=== PATIENT | male | born 1985 | race Hispanic/Latino ===

== ENCOUNTER 2017-01-13 21:42 | Emergency (ER) | payer SELFPAY ==
[2017-01-13 23:31] LABS: #Lymphocytes 1.7 thou/uL (1.20-3.40); %Basophils 0.3 % (0.0-1.0); %Eosinophils 0.2 % (0.0-10.0); %Monocytes 5.7 % (0.0-10.0); Hematocrit 43.5 % (42.0-52.0); Mean Platelet Volume 5.9 fL (7.4-10.4); Red Blood Cell (RBC) Count 4.91 mill/uL (4.70-6.10); White Blood Cell (WBC) Count 16.7 thou/uL (4.8-10.8)
[2017-01-13 23:53] LABS: ALT (SGPT) 48 U/L (8-55); AST (SGOT) 23 U/L (5-34); Alkaline Phosphatase 179 U/L (40-150); Anion Gap 15 mmol/L (10-20); BUN (Urea Nitrogen) 17 mg/dL (8.9-20.6); Bilirubin, Total 0.3 mg/dL (0.2-1.2); Calc. Creatinine Clearance 0 mL/min (70-130); Calcium 9.9 mg/dL (7.8-10.44); Carbon Dioxide 25 mmol/L (22-29); Chloride 101 mmol/L (98-107); Estimated GFR-MDRD Greater than 90; Globulin 5.9 g/dL (2.4-3.5); Lipase 10 U/L (8-78); Protein, Total 9.9 g/dL (6.0-8.3)
[2017-01-14] MEDS ORDERED: Ketorolac Tromethamine 30 MG/ML VIAL ONE (01:11)
[2017-01-14] MEDS ORDERED: Ondansetron HCl/PF 4 MG/2 ML Vial ONE (01:11)
[2017-01-14 01:13] LABS: Lactic Acid - Sepsis 0.9 mmol/L (0.5-2.2)
[2017-01-14] MEDS ORDERED: traMADol HCl 50 MG TAB ONE (03:18)
--- NOTE | 2017-01-14 08:17 | RAD ---
LEFT HIP 2 VIEWS: Date: 01/14/17 HISTORY: Flank pain. COMPARISON: None. FINDINGS: Severe osteoarthritic disease of the left hip with complete cartilage loss, as well as subchondral s clerosis of the acetabulum and femoral head. There are ring osteophytes of the left femoral head/nec k junction. Right hip arthroplasty is incompletely evaluated. There appears to be ankylosis of the SI joints. IMPRESSION: 1. Severe osteoarthritic disease of the left hip. 2. Ankylosis of the SI joints. POS: [facility]
--- NOTE | 2017-01-14 09:38 | ULT ---
PRELIMINARY REPORT/[facility]/EMERGENCY AFTER HOURS PROCEDURE: EXAM: US Retroperitoneal Complete EXAM DATE/TIME: Exam ordered 01/14/2017 1:30 AM CLINICAL HISTORY: 31 years old, male; Pain; Other: Lt flank pain TECHNIQUE: Real-time ultrasound of the retroperitoneum (complete) with image documentation. COMPARISON: No relevant prior studies available. FINDINGS: Aorta: No aneurysm. Common iliac arteries: No aneurysm. Inferior vena cava: Normal. Right kidney: There are several nonobstructing RIGHT renal pelvic calculi. The RIGHT kidney measures 12.1 x 4.7 x 4.1 cm. Left kidney: There is mild LEFT renal pelvic fullness without jason hydronephrosis. The LEFT kidney measures 10.8 x 5.6 x 4.7 cm. No stones. Bladder: The bilateral ureteral jets are visualized. IMPRESSION: 1. There are several nonobstructing RIGHT renal pelvic calculi. 2. There is mild LEFT renal pelvic fullness without jason hydronephrosis. Thank you for allowing us to participate in the care of your patient. Dictated and Authenticated by: Young Dill MD 01/14/2017 3:39 AM Central Time ([place] \T\ [place]) FINAL REPORT EMERGENCY AFTER HOURS RENAL SONOGRAM: Date: 01/14/17 HISTORY: Left flank pain. IMPRESSION: 1. Nonobstructing right renal calculi with suggestion of at least two nonobstructing calculi seen, one in the inferior pole measuring 6.0 mm and second in the mid portion of right kidney measuring a pproximately 8.0 mm. No hydronephrosis is seen bilaterally. 2. Small, nonspecific fullness in the left renal pelvis. There is otherwise no evidence of hydronep hrosis. 3. Partially distended urinary bladder demonstrates a normal sonographic appearance. Findings are in agreement with the preliminary report by González. POS: [facility]
--- NOTE | 2017-01-14 09:41 | ULT ---
PRELIMINARY REPORT/[facility]/EMERGENCY AFTER HOURS PROCEDURE: EXAM: US Scrotum CLINICAL HISTORY: 31 years old, male; Pain; Other: Lt testicle TECHNIQUE: Real-time ultrasound of the scrotum with color Doppler and image documentation. COMPARISON: No relevant prior studies available. FINDINGS: Right testicle: RIGHT testicular peak systolic velocity measures 8 cm/s. Normal RIGHT testicular triston ous waveform. The RIGHT testicle measures 3.7 x 1.8 x 2.3 cm. No torsion. Left testicle: LEFT testicle measures 3.8 x 2.5 x 2.8 cm and is hyperemic. LEFT testicular peak syst olic velocity measures approximately 18 cm/s. There is normal LEFT testicular venous waveform. No to rsion. Epididymides: The RIGHT epididymis is unremarkable. The LEFT epididymis is enlarged and hyperemic. Scrotum: Normal. IMPRESSION: Findings consistent with LEFT epididymoorchitis. EXAM: US Duplex Arterial/Venous of the Scrotum, Complete EXAM DATE/TIME: Exam ordered 01/14/2017 2:06 AM CLINICAL HISTORY: 31 years old, male; Pain; Other: Lt testicle TECHNIQUE: Real-time duplex ultrasound scan of the arterial and venous flow of the scrotal contents with color Doppler flow and spectral waveform analysis. COMPARISON: No relevant prior studies available. FINDINGS: Right testicle: RIGHT testicular peak systolic velocity measures 8 cm/s. Normal RIGHT testicular triston ous waveform. The RIGHT testicle measures 3.7 x 1.8 x 2.3 cm. Normal blood flow. Left testicle: LEFT testicle measures 3.8 x 2.5 x 2.8 cm. LEFT testicular peak systolic velocity werner sures approximately 18 cm/s. There is normal LEFT testicular venous waveform. Hyperemic arterial blo od flow. Epididymides: The RIGHT epididymis is unremarkable. The LEFT epididymis is enlarged and hyperemic. IMPRESSION: Findings consistent with LEFT epididymoorchitis. Thank you for allowing us to participate in the care of your patient. Dictated and Authenticated by: Young Dill MD 01/14/2017 3:44 AM Central Time ([place] \T\ [place]) FINAL REPORT EMERGENCY AFTER HOURS TESTICULAR ULTRASOUND: Date: 01/14/17 HISTORY: Left testicular pain. IMPRESSION: Findings most compatible with left epididymo-orchitis with increased vascular flow seen in both the left testicle and epididymis. Left epididymis is also enlarged. Findings are in agreement with the preliminary report by González. POS: [facility]
== END 2017-01-14 03:35 | disposition home or self-care (01) ==
LOC: ERS 21:42
DX: N45.1 Epididymitis (principal); M45.9 Ankylosing spondylitis of unspecified sites in spine; M16.12 Unilateral primary osteoarthritis, left hip; N20.0 Calculus of kidney; N45.2 Orchitis; F32.9 Major depressive disorder, single episode, unspecified
CPT/HCPCS: 36415; 76770; 76870; 80053; 83605; 83690; 85025; 85652; 86140; 87040; 93976; 96361; 96374; 96375; 96376; J1885; J2405

== ENCOUNTER 2017-10-17 12:09 | Outpatient (CLI) | payer OTHER ==
[2017-10-17 14:05] LABS: #Basophils 0.1 thou/uL (0.0-0.2); #Eosinphils 0.1 thou/uL (0.0-0.7); #Lymphocytes 2.4 thou/uL (1.20-3.40); #Monocytes 0.8 thou/uL (0.11-0.59); #Neutrophils 4.5 thou/uL (1.40-6.50); %Basophils 0.9 % (0.0-1.0); %Eosinophils 1.8 % (0.0-10.0); %Lymphocytes 30.6 % (21.0-51.0); %Monocytes 9.6 % (0.0-10.0); %Neutrophils 57.1 % (42.0-75.0); Hemoglobin 14.4 g/dL (14.0-18.0); Mean Corpuscular HGB CONC 33.5 g/dL (32.0-36.0); Mean Corpuscular Hemoglobin 30.4 pg (27.0-31.0); Mean Corpuscular Volume 90.7 fL (78.0-98.0); Mean Platelet Volume 6.4 fL (7.4-10.4); Platelet Count 278 thou/uL (130-400); Red Blood Cell (RBC) Count 4.74 mill/uL (4.70-6.10); White Blood Cell (WBC) Count 7.8 thou/uL (4.8-10.8)
[2017-10-17 14:07] LABS: Bilirubin Negative (Negative); Blood, Urine Large (Negative); Clarity CLOUDY (Clear); Glucose, Urine (Dipstick) Negative (Negative); Leukocyte Small (Negative); Nitrite Negative (Negative); Protein, Urine (Dipstick) Trace mg/dL (Neg-Trace); Specific Gravity, Urine 1.024 (1.002-1.036)
[2017-10-17 14:12] LABS: Bacteria/HPF None Seen HPF (None Seen); Hyaline Casts/LPF 7-10 HYALINE CAST LPF (0-3 Hyaline); Pathc Cast-AUWi Flag 1.88 (0-2.49); RBC/HPF GREATER THAN 50-TNTC HPF (0-3); Squamous Epithelial 0-3 HPF (0-3)
[2017-10-17 14:15] LABS: INR-International Normal Ratio 1.1; Prothrombin Time 13.9 SEC (12.0-14.7)
--- NOTE | 2017-10-17 14:19 | RAD ---
2 VIEWS CHEST: Date: 10/17/17 PROVIDED CLINICAL HISTORY: Preop. FINDINGS: Comparison is made with the study dated 07/11/11. Cardiac and mediastinal silhouette is within normal limits. Lungs appear clear. There is no pleural f luid or pneumothorax apparent. IMPRESSION: No evidence for an acute cardiopulmonary process. POS: [facility]
[2017-10-17 14:27] LABS: Anion Gap 14 mmol/L (10-20); BUN (Urea Nitrogen) 16 mg/dL (8.9-20.6); Calc. Creatinine Clearance 0 mL/min (70-130); Calcium 9.8 mg/dL (7.8-10.44); Carbon Dioxide 25 mmol/L (22-29); Chloride 102 mmol/L (98-107); Estimated GFR-MDRD Greater than 90; Glucose 85 mg/dL (70-105); Potassium 3.8 mmol/L (3.5-5.1); Sodium 137 mmol/L (136-145)
[2017-10-17 14:43] LABS: Renal Epithelial None Seen HPF (0-3); Transitional Epithelial NONE SEEN HPF (0-3)
== END 2017-10-17 12:10 | disposition home or self-care (01) ==
LOC: LABBT 12:09
PROVIDERS: ATTEND Orthopaedic Surgery
DX: Z01.818 Encounter for other preprocedural examination (principal); M16.12 Unilateral primary osteoarthritis, left hip
CPT/HCPCS: 71046; 80048; 81001; 85025; 85610; 86850; 86900; 86901; 87081; 93005; 93010

== ENCOUNTER 2017-10-17 13:15 | Inpatient (IN) | payer OTHER ==
[2017-10-17 12:28] VITALS: BMI 18.8
[2017-10-22] MEDS ORDERED: Promethazine HCl 25 MG/ML VIAL IM PRN ×2 (10:03→10:34)
[2017-10-22] MEDS ORDERED: diphenhydrAMINE 25 MG CAP PO PRN ×2 (10:03→10:34)
[2017-10-22] MEDS ORDERED: Ondansetron PF 4 MG/2 ML Vial IVP PRN ×2 (10:03→10:34)
[2017-10-22] MEDS ORDERED: Naloxone HCl 0.4 mg/ml Vial IV PRN (10:03)
[2017-10-22] MEDS ORDERED: Zolpidem Tartrate 5 MG TAB PO PRN ×2 (10:03→10:34)
[2017-10-22] MEDS ORDERED: diphenhydrAMINE 50 MG/ML VIAL IM/IV PRN (10:03)
[2017-10-22] MEDS ORDERED: Ketorolac Tromethamine 30 MG/ML VIAL IVP PRN (10:03)
[2017-10-22] MEDS ORDERED: Ondansetron PF 4 MG/2 ML Vial ONE (10:13)
[2017-10-22] MEDS ORDERED: PROPOFOL 200 MG/20 ML VIAL ONE (10:13)
[2017-10-22] MEDS ORDERED: Lidocaine 1% PF 5 ML VIAL ONE (10:13)
[2017-10-22] MEDS ORDERED: Esmolol 100 MG/10 ML VIAL ONE (10:13)
[2017-10-22] MEDS ORDERED: Dexamethasone 20 MG/5 ML VIAL ONE (10:13)
[2017-10-22] MEDS ORDERED: Glycopyrrolate 0.2 MG/ML 5 ML SYRINGE ONE (10:13)
[2017-10-22] MEDS ORDERED: HYDROcodone/Acetaminophen 10/325 mg Tablet PO PRN ×2 (10:34)
[2017-10-22] MEDS ORDERED: Fentanyl 100 MCG/2 ML VIAL SLOW IVP PRN ×2 (10:34)
[2017-10-22] MEDS ORDERED: Acetaminophen 325 MG TAB PO PRN (10:34)
[2017-10-22] MEDS ORDERED: traMADol HCl 50 MG TAB PO PRN (10:34)
[2017-10-22] MEDS ORDERED: Ketorolac Tromethamine 30 MG/ML VIAL ONE (13:10)
[2017-10-22] MEDS ORDERED: Tranexamic Acid 1,000 MG/10 ML VIAL ONE (13:10)
[2017-10-22] MEDS ORDERED: HYDROmorphone 0.5 MG/0.5 ML SYRINGE ONE (13:22)
--- NOTE | 2017-10-22 13:26 | OP ---
DATE OF PROCEDURE: 10/22/2017 PREOPERATIVE DIAGNOSIS: End-stage bicompartmental osteoarthritis, left hip. POSTOPERATIVE DIAGNOSIS: End-stage bicompartmental osteoarthritis, left hip. PROCEDURE: Press-fit left total hip arthroplasty. SURGEON: Hari Lara M.D. HEATING AND BLENDING SUPERVISOR: Jake Casillas PA-C. ANESTHESIA: General via endotracheal tube. COMPONENTS USED: [facility], Accolade press-fit size 4.5 hip stem with a Tritanium hemisphe rical 54 mm cluster acetabular shell, a 10 degree polyethylene fixed bearing insert, and a 36 mm meta llic femoral head with a -5 offset. ESTIMATED BLOOD LOSS: 600 mL. FINDINGS: Severe early degenerative bicompartmental disease, end-stage in nature secondary to matt forrester having other rheumatological diseases such as ankylosing spondylitis. DRAINS: None. SPECIMENS: None. COMPLICATIONS: None. COUNTS: Correct. INDICATIONS FOR SURGERY: Chandu is a 31-year-old male that has had ankylosing spondylitis as well a s degenerative joint disease of both hips which has been lifelong in nature. He has had progressive left hip pain amplified with standing and walking. In fact, he has not been able to walk for the las t month or so due to pain and stiffness especially. He has near pseudarthrosis and ankylosis of the left hip. Therefore, he has elected to proceed with a left total hip arthroplasty. PROCEDURE IN DETAIL: After informed consent was obtained in the preoperative holding area, the zoya villegas was taken to the operative suite where general anesthesia was induced. The patient was then posit ioned in the lateral decubitus position. The hip was then prepped and draped in usual sterile fashio n. The patient received preoperative antibiotics. Prior to incision, time-out was called and all me mbers of the surgical team agreed upon site, surgeon, and patient. After this, a longitudinal incisi on was made directly over the trochanter, noted by palpation extending 2 fingerbreadths above and bel ow the trochanter. The deeper subcutaneous layer was undermined with Bovie electrocautery. The ilio tibial band was encountered and incised sharply and the plane below this was developed bluntly. [facility] was placed to hold this opened. The lateral aspect of the trochanter and the abduct or muscles were encountered and then reflected anteriorly off the trochanter using Bovie electrocaute ry. Once this was completed, the anterior capsule was then encountered and identified and copious ca psulotomy was carried out, exposing the femoral neck and head. Dislocation maneuver was then performe d and an in situ provisional neck cut was then made using the oscillating saw. Attention was then tu rned to acetabular preparation and sequential reaming was carried out up to the appropriate diameter and a trial was then malleted into place with good firm resistance and no pullout. The permanent brayden tabular shell was then malleted squarely into place, as was the appropriate liner. Once completed, t he wound was copiously irrigated and attention was then turned to femoral preparation. Flexion and ex ternal rotation was performed of the exposed thigh and femoral elevators were then placed at the prox imal aspect of the wound. Canal finder was used to establish the length of the canal and sequential reaming was carried out, followed by broaching. Once the appropriate stability was established with the trial broaches with both flexion, extension and rotational stability, we did trial with neutral a nd 2 mm offset incremental necks. Once the appropriate size was decided upon, with good stability no esteban with flexion, extension, internal and external rotation and shuck being negative, we removed the femoral trial broach and malletted into place the permanent prosthesis with good firm fit, which was also stable to rotation. Again, the hip felt very stable to flexion, extension, internal and externa l rotation. Leg lengths appeared near anatomic clinically and we were quite happy with prosthesis pl acement. Copious irrigation was then carried out through the entirety of the wound. Primary closure of the abductors was accomplished with interrupted #2 Vicryl [id number] stitches and the IT ban d was then closed with interrupted #2 Vicryl, oversewn with a #2 running barbed Quill stitch. Subcut aneous fascia was closed with running barbed Quill stitch and a subcuticular Monocryl barbed Quill st itch was used for skin closure and augmented with skin cement. A sterile dressing was applied. The p rocedure was terminated without any complication. All counts were correct. The patient was awakened in the operative suite and taken to the recovery room in stable condition.
[2017-10-22] MEDS ORDERED: CEFAZOLIN/Water 2 GM/20 ML SYRINGE SLOW IVP SCH (14:00)
[2017-10-22] MEDS: Sodium Chloride 0.9% 1,000 ML IV SCH ×2 (14:25→21:15)
--- NOTE | 2017-10-22 14:56 | RAD ---
2 VIEWS LEFT HIP: Date: 10/22/17 HISTORY: Status post arthroplasty. FINDINGS: Left hip arthroplasty, uncomplicated. Alignment is near anatomic. IMPRESSION: Postsurgical change as above. POS: [facility]
--- NOTE | 2017-10-22 15:00 | PDOC.PN ---
- Subjective Encounter Start Date: 10/22/17 Encounter Start Time: 15:00 -: old records requested/rev consulted for medical management old medical record reviewed old labs reviewed Patient seen and examined. No new complaints. No overnight events - Objective MAR Reviewed: Yes Vital Signs & Weight: Vital Signs (12 hours) Temp Pulse Resp BP Pulse Ox 10/22/17 14:05 97.7 F 81 18 130/67 99 Weight Weight 117 lb Radiology Reviewed by me: Yes (Hip xray reviewed) EKG Reviewed by me: Yes (old labs reviweed) Phys Exam - Physical Examination Constitutional: NAD HEENT: PERRLA, moist MMs, sclera anicteric Neck: no JVD, supple Respiratory: no wheezing, no rales, no rhonchi Cardiovascular: RRR, no significant murmur, no rub Gastrointestinal: soft, non-tender, no distention, positive bowel sounds Musculoskeletal: no edema, pulses present surgical site with dressing Neurological: non-focal, normal sensation Psychiatric: normal affect, A&O x 3 Skin: no rash, normal turgor Dx/Plan (1) Status post total hip replacement, left Code(s): Z96.642 - PRESENCE OF LEFT ARTIFICIAL HIP JOINT Status: Acute (2) Degenerative joint disease of left hip Code(s): M16.12 - UNILATERAL PRIMARY OSTEOARTHRITIS, LEFT HIP Status: Chronic (3) Ankylosing spondylitis Code(s): M45.9 - ANKYLOSING SPONDYLITIS OF UNSPECIFIED SITES IN SPINE Status: Chronic - Plan cont current plan of care, plan discussed w/ family, PT/OT * continue aspirin for DVT prophylaxis * add pepcid for GI prophylaxis * home medication reconciled * pain control with pain meds as below * PT/OT as per [facility] protocol * medical problems are stable * medication reviewed as below * symptomatic treatment. * code status- full code. Review of Systems - Review of Systems ENT: negative: Ear Pain, Ear Discharge, Nose Pain, Nose Discharge, Nose Congestion, Mouth Pain, Mouth Swelling, Throat Pain, Throat Swelling, Other Respiratory: negative: Cough, Dry, Shortness of Breath, Hemoptysis, SOB with Excertion, Pleuritic Pain, Sputum, Wheezing Cardiovascular: negative: chest pain, palpitations, orthopnea, paroxysmal nocturnal dyspnea, edema, light headedness, other Gastrointestinal: negative: Nausea, Vomiting, Abdominal Pain, Diarrhea, Constipation, Melena, Hematochezia, Other Genitourinary: negative: Dysuria, Frequency, Incontinence, Hematuria, Retention , Other Musculoskeletal: negative: Neck Pain, Shoulder Pain, Arm Pain, Back Pain, Hand Pain, Leg Pain, Foot Pain, Other - Medications/Allergies Allergies/Adverse Reactions: Allergies Allergy/AdvReac Type Severity Reaction Status Date / Time No Known Allergies Allergy Verified 10/17/17 12:28 Medications: Current Medications Acetaminophen (Tylenol) 650 mg PO Q4H PRN PRN Reason: BABB/ T > 101F; Mild Pain (1-3) Hydrocodone Bitart/Acetaminophen ([place] 10/325) 1 tab PO Q4H PRN PRN Reason: Moderate Pain (4-6) Hydrocodone Bitart/Acetaminophen ([place] 10/325) 2 tab PO Q4H PRN PRN Reason: Severe Pain (7-10) Aspirin (Aspirin Chewable) 81 mg PO BID [facility] Cefazolin Sodium (Ancef) 2 gm SLOW IVP Q8H [facility] Stop: 10/23/17 04:01 Cyclobenzaprine HCl (Flexeril) 5 mg PO HS [facility] Diphenhydramine HCl (Benadryl) 25 mg IM/IV Q3H PRN PRN Reason: Itching Diphenhydramine HCl (Benadryl) 25 mg PO Q3H PRN PRN Reason: Itching Diphenhydramine HCl (Benadryl) 25 mg PO Q6H PRN PRN Reason: Itching Fentanyl (Sublimaze) 50 mcg SLOW IVP Q30MIN PRN PRN Reason: Moderate Pain (4-6) Fentanyl (Sublimaze) 100 mcg SLOW IVP Q1H PRN PRN Reason: Severe Pain (7-10) Ferrous Gluconate (Fergon) 324 mg PO BID [facility] Fentanyl Citrate 2,000 mcg/ (Sodium Chloride) 100 mls @ 0 mls/hr IV INF PRN; As Directed PRN Reason: Pain Sodium Chloride (Normal Saline 0.9%) 1,000 mls @ 100 mls/hr IV .Q10H [facility] Last Admin: 10/22/17 14:25 Dose: Not Given Iron/Minerals/Multivitamins (Theragran M) 1 tab PO DAILY [facility] Naloxone HCl (Narcan) 0.2 mg IV Q5MIN PRN PRN Reason: RR <8 or pt obtun/unarousable Ondansetron HCl (Zofran) 4 mg IVP Q6H PRN PRN Reason: Nausea/Vomiting Ondansetron HCl (Zofran) 4 mg IVP Q6H PRN PRN Reason: Nausea/Vomiting Promethazine HCl (Phenergan) 12.5 mg IM Q4H PRN PRN Reason: Nausea/Vomiting Promethazine HCl (Phenergan) 12.5 mg IM Q4H PRN PRN Reason: Nausea/Vomiting Senna/Docusate Sodium (Senokot S) 2 tab PO BID [facility] Sodium Chloride (Flush - Normal Saline) 10 ml IVF PRN PRN PRN Reason: Saline Flush Tramadol HCl (Ultram) 100 mg PO Q6H PRN PRN Reason: Mild Pain (1-3) Trazodone HCl (Desyrel) 50 mg PO HS [facility] Zolpidem Tartrate (Ambien) 5 mg PO HSPRN PRN PRN Reason: Insomnia Zolpidem Tartrate (Ambien) 5 mg PO HSPRN PRN PRN Reason: Insomnia
[2017-10-22] MEDS ORDERED: Artificial Tears 18 DROP/0.9 ML EA EYE PRN (15:01)
[2017-10-22] MEDS ORDERED: Mag-Al 1200 mg/1200 mg/30 ML UDCUP PO PRN (15:01)
[2017-10-22] MEDS ORDERED: Eucerin (Mineral Oil/Petrolatum,White) 30 gm Jar TOP PRN (15:01)
[2017-10-22] MEDS ORDERED: Diabetic Tussin 200 MG/10 ML UDCUP PO PRN (15:01)
[2017-10-22] MEDS ORDERED: Chloraseptic Spray 180 ml Bottle PO PRN (15:01)
[2017-10-22] MEDS ORDERED: Milk Of Magnesia 30 ML UDCUP PO PRN (15:01)
[2017-10-22] MEDS ORDERED: Senokot 8.6 MG TAB PO PRN (15:01)
[2017-10-22] MEDS ORDERED: hydrALAZINE 20 MG/ML VIAL SLOW IVP PRN (15:01)
[2017-10-22] MEDS ORDERED: Loperamide HCl 2 MG CAP PO PRN (15:01)
[2017-10-22] MEDS ORDERED: Bisacodyl 10 MG SUPP PR PRN (15:01)
[2017-10-22] MEDS ORDERED: Ondansetron ODT 4 MG TAB PO PRN (15:01)
[2017-10-22] MEDS: CEFAZOLIN/Water 2 GM/20 ML SYRINGE SLOW IVP SCH (21:13)
[2017-10-22] MEDS: Ferrous Gluconate 324 MG TAB PO SCH (21:15)
[2017-10-22] MEDS: traZODone HCl 50 MG TAB PO SCH (21:16)
[2017-10-22] MEDS: Famotidine 20 MG TAB PO SCH (21:16)
[2017-10-22] MEDS: Senokot S 8.6-50 MG TAB PO SCH (21:16)
[2017-10-22] MEDS: Cyclobenzaprine 10 MG TAB PO SCH (21:16)
[2017-10-23] MEDS: fentaNYL Citrate/PF 2,000 MCG in Sodium Chloride 0.9% 60 ML IV PRN ×2 (03:25→18:03)
[2017-10-23] MEDS: CEFAZOLIN/Water 2 GM/20 ML SYRINGE SLOW IVP SCH (03:25)
[2017-10-23] MEDS: Sodium Chloride 0.9% 1,000 ML IV SCH ×3 (05:00→23:02)
[2017-10-23 06:15] LABS: Hemoglobin 9.7 g/dL (14.0-18.0); Mean Corpuscular HGB CONC 34.8 g/dL (32.0-36.0); Mean Corpuscular Volume 89.1 fL (78.0-98.0); Platelet Count 215 thou/uL (130-400); RBC Distribution Width 11.4 % (11.5-14.5); Red Blood Cell (RBC) Count 3.14 mill/uL (4.70-6.10)
[2017-10-23] MEDS: Senokot S 8.6-50 MG TAB PO SCH ×2 (07:53→21:22)
[2017-10-23] MEDS: Multivitamin W/ Minerals 1 TAB PO SCH (07:53)
[2017-10-23] MEDS: Ferrous Gluconate 324 MG TAB PO SCH ×2 (07:53→21:22)
[2017-10-23] MEDS: Famotidine 20 MG TAB PO SCH ×2 (07:53→21:21)
--- NOTE | 2017-10-23 11:42 | PDOC.PN ---
- Subjective Encounter Start Date: 10/23/17 Encounter Start Time: 08:15 Patient seen and examined. No new complaints. No overnight events pt is on [employer] his pain is controlled - Objective Resuscitation Status: Resuscitation Status FULL:Full Resuscitation MAR Reviewed: Yes Vital Signs & Weight: Vital Signs (12 hours) Temp Pulse Resp BP Pulse Ox 10/23/17 08:04 98.4 F 99 16 120/77 100 10/23/17 08:00 98.4 F 99 16 100 10/23/17 06:22 98.2 F 92 18 113/74 99 10/23/17 00:00 97.6 F 90 18 108/69 99 Weight Weight 117 lb I&O: 10/22/17 10/23/17 10/24/17 06:59 06:59 06:59 Intake Total 1220 Output Total 1275 Balance -55 Result Diagrams: 10/23/17 05:38 Phys Exam - Physical Examination Constitutional: NAD HEENT: PERRLA, moist MMs, sclera anicteric Neck: no JVD, supple Respiratory: no wheezing, no rales, no rhonchi Cardiovascular: RRR, no significant murmur, no rub Gastrointestinal: soft, non-tender, no distention, positive bowel sounds Musculoskeletal: no edema, pulses present surgical site with dressing Neurological: non-focal, normal sensation, moves all 4 limbs Lymphatic: no nodes Psychiatric: normal affect, A&O x 3 Skin: no rash, normal turgor Dx/Plan (1) Status post total hip replacement, left Code(s): Z96.642 - PRESENCE OF LEFT ARTIFICIAL HIP JOINT Status: Acute (2) Degenerative joint disease of left hip Code(s): M16.12 - UNILATERAL PRIMARY OSTEOARTHRITIS, LEFT HIP Status: Chronic (3) Ankylosing spondylitis Code(s): M45.9 - ANKYLOSING SPONDYLITIS OF UNSPECIFIED SITES IN SPINE Status: Chronic (4) Anemia, normocytic normochromic Code(s): D64.9 - ANEMIA, UNSPECIFIED Status: Chronic - Plan cont current plan of care, PT/OT * continue aspirin for DVT prophylaxis * continue pepcid for GI prophylaxis * continue selected home medication as below * pain control with pain meds as below * continue [employer] for pain control * PT/OT as per [facility] protocol * medical problems are stable * medication reviewed as below * symptomatic treatment. Review of Systems - Review of Systems Eyes: negative: Pain, Vision Change, Conjunctivae Inflammation, Eyelid Inflammation, Redness, Other ENT: negative: Ear Pain, Ear Discharge, Nose Pain, Nose Discharge, Nose Congestion, Mouth Pain, Mouth Swelling, Throat Pain, Throat Swelling, Other Respiratory: negative: Cough, Dry, Shortness of Breath, Hemoptysis, SOB with Excertion, Pleuritic Pain, Sputum, Wheezing Cardiovascular: negative: chest pain, palpitations, orthopnea, paroxysmal nocturnal dyspnea, edema, light headedness, other Gastrointestinal: negative: Nausea, Vomiting, Abdominal Pain, Diarrhea, Constipation, Melena, Hematochezia, Other Genitourinary: negative: Dysuria, Frequency, Incontinence, Hematuria, Retention , Other Musculoskeletal: negative: Neck Pain, Shoulder Pain, Arm Pain, Back Pain, Hand Pain, Leg Pain, Foot Pain, Other Skin: negative: Rash, Lesions, Santhosh, Bruising, Other - Medications/Allergies Allergies/Adverse Reactions: Allergies Allergy/AdvReac Type Severity Reaction Status Date / Time No Known Allergies Allergy Verified 10/17/17 12:28 Medications: Current Medications Acetaminophen (Tylenol) 650 mg PO Q4H PRN PRN Reason: BABB/ T > 101F; Mild Pain (1-3) Al Hydroxide/Mg Hydroxide (Maalox) 15 ml PO Q4H PRN PRN Reason: Heartburn or Indigestion Artificial Tears (Tears Naturale) 0 drop EA EYE PRN PRN PRN Reason: Dry Eyes Aspirin (Aspirin Chewable) 81 mg PO BID [facility] Last Admin: 10/23/17 07:53 Dose: 81 mg Bisacodyl (Dulcolax) 10 mg [place] DAILYPRN PRN PRN Reason: Constipation Cyclobenzaprine HCl (Flexeril) 5 mg PO HS [facility] Last Admin: 10/22/17 21:16 Dose: 5 mg Diphenhydramine HCl (Benadryl) 25 mg IM/IV Q3H PRN PRN Reason: Itching Diphenhydramine HCl (Benadryl) 25 mg PO Q3H PRN PRN Reason: Itching Diphenhydramine HCl (Benadryl) 25 mg PO Q6H PRN PRN Reason: Itching Famotidine (Pepcid) 20 mg PO BID [facility] Last Admin: 10/23/17 07:53 Dose: 20 mg Ferrous Gluconate (Fergon) 324 mg PO BID [facility] Last Admin: 10/23/17 07:53 Dose: 324 mg Guaifenesin (Robitussin Sf) 200 mg PO Q4H PRN PRN Reason: Cough Hydralazine HCl (Apresoline) 10 mg SLOW IVP Q4H PRN PRN Reason: Systolic BP > 180 Fentanyl Citrate 2,000 mcg/ (Sodium Chloride) 100 mls @ 0 mls/hr IV INF PRN PRN Reason: Pain Last Admin: 10/23/17 03:25 Dose: 100 mls Sodium Chloride (Normal Saline 0.9%) 1,000 mls @ 100 mls/hr IV .Q10H [facility] Last Admin: 10/23/17 05:00 Dose: Not Given Iron/Minerals/Multivitamins (Theragran M) 1 tab PO DAILY [facility] Last Admin: 10/23/17 07:53 Dose: 1 tab Loperamide HCl (Imodium) 2 mg PO PRN PRN PRN Reason: Diarrhea/Loose Stools Magnesium Hydroxide (Milk Of Magnesium) 30 ml PO DAILYPRN PRN PRN Reason: Constipation Mineral Oil/White Petrolatum (Eucerin Cream) 0 gm TOP BIDPRN PRN PRN Reason: Dry Skin Naloxone HCl (Narcan) 0.2 mg IV Q5MIN PRN PRN Reason: RR <8 or pt obtun/unarousable Ondansetron HCl (Zofran) 4 mg IVP Q6H PRN PRN Reason: Nausea/Vomiting Ondansetron HCl (Zofran Odt) 4 mg PO Q6H PRN PRN Reason: Nausea/Vomiting Phenol (Chloraseptic [place] 180 Ml Bot) 0 ml PO PRN PRN PRN Reason: Sore Throat Promethazine HCl (Phenergan) 12.5 mg IM Q4H PRN PRN Reason: Nausea/Vomiting Promethazine HCl (Phenergan) 12.5 mg IM Q4H PRN PRN Reason: Nausea/Vomiting Senna (Senokot) 2 tab PO HSPRN PRN PRN Reason: Constipation Senna/Docusate Sodium (Senokot S) 2 tab PO BID [facility] Last Admin: 10/23/17 07:53 Dose: 2 tab Sodium Chloride (Flush - Normal Saline) 10 ml IVF PRN PRN PRN Reason: Saline Flush Trazodone HCl (Desyrel) 50 mg PO HS [facility] Last Admin: 10/22/17 21:16 Dose: 50 mg Zolpidem Tartrate (Ambien) 5 mg PO HSPRN PRN PRN Reason: Insomnia
--- NOTE | 2017-10-23 17:58 | PRG ---
DATE OF SERVICE: 10/23/2017 SUBJECTIVE: Chandu is a 31-year-old male who is postop day 1 from left total hip arthroplasty. He has no complaints. He is feeling much better at this point after his hip surgery. OBJECTIVE: VITAL SIGNS: Temperature 98.8, pulse 123, respiratory rate 16, blood pressure is 130/83. GENERAL: He is alert; oriented to person, place, time, and situation; conversive; nonfocal; and very appropriate with the examiner and happy with his postoperative results. Hemoglobin and hematocrit 9.7 and 28. IMPRESSION: 1. 31-year-old male postop day 1 left total hip arthroplasty. 2. Mild postoperative hemorrhagic anemia. 3. Mild tachycardia, possibly secondary to blood loss anemia superimposed on chronic anemia with mil d tachycardia, but asymptomatic otherwise. PLAN: Continue current care. Discharge home probably tomorrow.
[2017-10-23] MEDS: Cyclobenzaprine 10 MG TAB PO SCH (21:22)
[2017-10-23] MEDS: traZODone HCl 50 MG TAB PO SCH (21:22)
[2017-10-24 04:38] LABS: Hemoglobin 10.2 g/dL (14.0-18.0); Mean Corpuscular HGB CONC 35.1 g/dL (32.0-36.0); Mean Corpuscular Hemoglobin 31.2 pg (27.0-31.0); Mean Corpuscular Volume 88.9 fL (78.0-98.0); Mean Platelet Volume 6.1 fL (7.4-10.4); Platelet Count 205 thou/uL (130-400); RBC Distribution Width 11.3 % (11.5-14.5); Red Blood Cell (RBC) Count 3.25 mill/uL (4.70-6.10); White Blood Cell (WBC) Count 8.4 thou/uL (4.8-10.8)
[2017-10-24] MEDS: Multivitamin W/ Minerals 1 TAB PO SCH (08:40)
[2017-10-24] MEDS: Ferrous Gluconate 324 MG TAB PO SCH (08:40)
[2017-10-24] MEDS: Famotidine 20 MG TAB PO SCH (08:40)
[2017-10-24] MEDS: Senokot S 8.6-50 MG TAB PO SCH (08:40)
[2017-10-24] MEDS: Sodium Chloride 0.9% 1,000 ML IV SCH (08:42)
[2017-10-24] MEDS ORDERED: HYDROcodone/Acetaminophen 10/325 mg Tablet PO PRN ×2 (10:01→10:02)
[2017-10-24] MEDS ORDERED: traMADol HCl 50 MG TAB PO PRN (10:02)
--- NOTE | 2017-10-24 11:44 | DPRG ---
DATE OF ADMISSION: 10/22/2017 DATE OF DISCHARGE: 10/24/2017 PRIMARY CARE PHYSICIAN: Dr. Stuart. DISCHARGE DISPOSITION: Home. PRIMARY DISCHARGE DIAGNOSIS: Total hip replacement on the left side. SECONDARY DISCHARGE DIAGNOSES: Ankylosing spondylitis, normocytic normochromic anemia, degenerative joint disease of left hip. PRIMARY PROCEDURE/OPERATION: Left total hip replacement. RADIOLOGICAL INVESTIGATION: Left hip x-ray. SIGNIFICANT LABORATORY DATA: WBC 8.4, hemoglobin 10.2, platelet 205. DISCHARGE MEDICATIONS: Patient will continue his Humira as directed, Flexeril 5 mg p.o. at bedtime, ibuprofen as directed, sulfasalazine 500 mg p.o. b.i.d., tramadol 50 mg q.i.d. p.r.n., trazodone 50 m g p.o. at bedtime p.r.n. Patient will continue pain medication as prescribed by primary team as well as aspirin 81 mg p.o. b.i.d. for DVT prophylaxis. CONTRAINDICATIONS: None. CODE STATUS: FULL CODE. INPATIENT [facility] C[facility]IER: Dr. Lara was primary while in hospital. [facility] Team was consulted for medica l comanagement. TEST RESULTS PENDING ON DISCHARGE: None. ALLERGIES: No known drug allergy. DISCHARGE PLAN: Post hospital, patient will follow up with primary care physician. The patient has appointment with Dr. Lara on 11/13/2017 at 1:15 p.m. HOSPITAL COURSE: A 31-year-old male who has underlying ankylosing spondylitis and he is following eumatologist. Patient also has associated advanced arthritis of hip joint and that was bothering his quality of life and that is why patient required left hip total replacement which was done by Dr. Klarissa avery on 10/22/2017. Postoperatively, a [facility] Team was consulted for medical comanag emyessica. The patient's all medical problem remained stable while in hospital. We continued the select ed home medication while in hospital as well as on discharge, the patient's pain was controlled with the [employer]. He was doing relatively well today. His pulse was running faster after his shower and ambu lation, but when we gave him more fluid and while his pulse back to home in 100s though patient was c ompletely asymptomatic, EKG was showing sinus tachycardia only. Clinically, the patient is doing very well and he expressed his wish to go home today. The patient is seen and examined at bedside today. PHYSICAL EXAMINATION; VITAL SIGNS: Currently, temperature 97.9, pulse 100, respiratory rate 20, saturation 97% on room air , blood pressure 108/71, weight 117 pounds. GENERAL: The patient is currently alert, awake, no obvious acute distress. HEAD: Normocephalic, atraumatic. EYES: Pupils round, reactive to light. Extraocular muscle intact. ENT: Oropharynx within normal limits. Moist mucous membranes. No oral lesion, no pharyngeal erythe ma, no exudate. NECK: Supple, no JVD, no thyromegaly, no carotid bruit. LUNGS: Clear to auscultation without any rhonchi or rales. CARDIAC: S1, S2 regular without any murmur. ABDOMEN: Soft and benign. EXTREMITIES: No edema. Surgical site is clean and healthy. All review of system reviewed and negative. Patient is medically stable for discharge.
--- NOTE | 2017-10-24 12:21 | PDOC.PN ---
- Subjective Encounter Start Date: 10/24/17 Encounter Start Time: 10:00 Patient seen and examined. No new complaints. No overnight events - Objective Resuscitation Status: Resuscitation Status FULL:Full Resuscitation MAR Reviewed: Yes Vital Signs & Weight: Vital Signs (12 hours) Temp Pulse Resp BP BP Pulse Ox 10/24/17 11:45 98.2 F 113 H 18 102/66 97 10/24/17 09:30 97.9 F 144 H 20 125/92 H 97 10/24/17 08:40 97.9 F 144 H 20 97 10/24/17 04:19 98.4 F 105 H 16 108/71 99 Weight Admit Weight 117 lb Weight 117 lb I&O: 10/23/17 10/24/17 10/25/17 06:59 06:59 06:59 Intake Total 1220 Output Total 1275 2600 Balance -55 -2600 Result Diagrams: 10/24/17 03:37 Phys Exam - Physical Examination Constitutional: NAD HEENT: PERRLA, moist MMs, sclera anicteric Neck: no JVD, supple Respiratory: no wheezing, no rales, no rhonchi Cardiovascular: RRR, no significant murmur, no rub Gastrointestinal: soft, non-tender, no distention, positive bowel sounds Musculoskeletal: no edema, pulses present Neurological: non-focal, normal sensation, moves all 4 limbs Psychiatric: normal affect, A&O x 3 Skin: no rash, normal turgor Dx/Plan (1) Status post total hip replacement, left Code(s): Z96.642 - PRESENCE OF LEFT ARTIFICIAL HIP JOINT Status: Acute (2) Degenerative joint disease of left hip Code(s): M16.12 - UNILATERAL PRIMARY OSTEOARTHRITIS, LEFT HIP Status: Chronic (3) Ankylosing spondylitis Code(s): M45.9 - ANKYLOSING SPONDYLITIS OF UNSPECIFIED SITES IN SPINE Status: Chronic (4) Anemia, normocytic normochromic Code(s): D64.9 - ANEMIA, UNSPECIFIED Status: Chronic (5) Sinus tachycardia Code(s): R00.0 - TACHYCARDIA, UNSPECIFIED Status: Acute - Plan cont current plan of care * medication reviewed as below * symptomatic treatment * see my discharge note. Review of Systems - Review of Systems Eyes: negative: Pain, Vision Change, Conjunctivae Inflammation, Eyelid Inflammation, Redness, Other ENT: negative: Ear Pain, Ear Discharge, Nose Pain, Nose Discharge, Nose Congestion, Mouth Pain, Mouth Swelling, Throat Pain, Throat Swelling, Other Respiratory: negative: Cough, Dry, Shortness of Breath, Hemoptysis, SOB with Excertion, Pleuritic Pain, Sputum, Wheezing Cardiovascular: negative: chest pain, palpitations, orthopnea, paroxysmal nocturnal dyspnea, edema, light headedness, other Gastrointestinal: negative: Nausea, Vomiting, Abdominal Pain, Diarrhea, Constipation, Melena, Hematochezia, Other Genitourinary: negative: Dysuria, Frequency, Incontinence, Hematuria, Retention , Other Musculoskeletal: negative: Neck Pain, Shoulder Pain, Arm Pain, Back Pain, Hand Pain, Leg Pain, Foot Pain, Other - Medications/Allergies Allergies/Adverse Reactions: Allergies Allergy/AdvReac Type Severity Reaction Status Date / Time No Known Allergies Allergy Verified 10/17/17 12:28 Medications: Current Medications Acetaminophen (Tylenol) 650 mg PO Q4H PRN PRN Reason: BABB/ T > 101F; Mild Pain (1-3) Hydrocodone Bitart/Acetaminophen ([place]owney 10/325) 1 tab PO Q4H PRN PRN Reason: Mild Pain (1-3) Last Admin: 10/24/17 10:51 Dose: 1 tab Hydrocodone Bitart/Acetaminophen (Downey 10/325) 2 tab PO Q4H PRN PRN Reason: Moderate Pain (4-6) Al Hydroxide/Mg Hydroxide (Maalox) 15 ml PO Q4H PRN PRN Reason: Heartburn or Indigestion Artificial Tears (Tears Naturale) 0 drop EA EYE PRN PRN PRN Reason: Dry Eyes Aspirin (Aspirin Chewable) 81 mg PO BID [facility] Last Admin: 10/24/17 08:40 Dose: 81 mg Bisacodyl (Dulcolax) 10 mg DC DAILYPRN PRN PRN Reason: Constipation Cyclobenzaprine HCl (Flexeril) 5 mg PO HS [facility] Last Admin: 10/23/17 21:22 Dose: 5 mg Diphenhydramine HCl (Benadryl) 25 mg IM/IV Q3H PRN PRN Reason: Itching Diphenhydramine HCl (Benadryl) 25 mg PO Q3H PRN PRN Reason: Itching Famotidine (Pepcid) 20 mg PO BID [facility] Last Admin: 10/24/17 08:40 Dose: 20 mg Ferrous Gluconate (Fergon) 324 mg PO BID [facility] Last Admin: 10/24/17 08:40 Dose: 324 mg Guaifenesin (Robitussin Sf) 200 mg PO Q4H PRN PRN Reason: Cough Hydralazine HCl (Apresoline) 10 mg SLOW IVP Q4H PRN PRN Reason: Systolic BP > 180 Sodium Chloride (Normal Saline 0.9%) 1,000 mls @ 100 mls/hr IV .Q10H [facility] Last Admin: 10/24/17 08:42 Dose: Not Given Iron/Minerals/Multivitamins (Theragran M) 1 tab PO DAILY [facility] Last Admin: 10/24/17 08:40 Dose: 1 tab Loperamide HCl (Imodium) 2 mg PO PRN PRN PRN Reason: Diarrhea/Loose Stools Magnesium Hydroxide (Milk Of Magnesium) 30 ml PO DAILYPRN PRN PRN Reason: Constipation Mineral Oil/White Petrolatum (Eucerin Cream) 0 gm TOP BIDPRN PRN PRN Reason: Dry Skin Naloxone HCl (Narcan) 0.2 mg IV Q5MIN PRN PRN Reason: RR <8 or pt obtun/unarousable Ondansetron HCl (Zofran) 4 mg IVP Q6H PRN PRN Reason: Nausea/Vomiting Last Admin: 10/24/17 09:34 Dose: 4 mg Ondansetron HCl (Zofran Odt) 4 mg PO Q6H PRN PRN Reason: Nausea/Vomiting Phenol (Chloraseptic [place] 180 Ml Bot) 0 ml PO PRN PRN PRN Reason: Sore Throat Promethazine HCl (Phenergan) 12.5 mg IM Q4H PRN PRN Reason: Nausea/Vomiting Senna (Senokot) 2 tab PO HSPRN PRN PRN Reason: Constipation Senna/Docusate Sodium (Senokot S) 2 tab PO BID [facility] Last Admin: 10/24/17 08:40 Dose: 2 tab Sodium Chloride (Flush - Normal Saline) 10 ml IVF PRN PRN PRN Reason: Saline Flush Tramadol HCl (Ultram) 100 mg PO Q4H PRN PRN Reason: Severe Pain (7-10) Trazodone HCl (Desyrel) 50 mg PO HS [facility] Last Admin: 10/23/17 21:22 Dose: 50 mg Zolpidem Tartrate (Ambien) 5 mg PO HSPRN PRN PRN Reason: Insomnia
[2017-10-24 17:33] VITALS: BP 116/71; TEMP 98.3
--- NOTE | 2018-01-13 17:11 | EKG ---
Test Reason : TACHY Blood Pressure : / mmHG Vent. Rate : 124 BPM Atrial Rate : 124 BPM P-R Int : 142 ms QRS Dur : 088 ms QT Int : 308 ms P-R-T Axes : 081 076 052 degrees QTc Int : 442 ms Sinus tachycardia Otherwise normal ECG When compared with ECG of 17-OCT-2017 13:23, Vent. rate has increased BY 52 BPM T wave amplitude has decreased in Lateral leads Confirmed by GERRY GREGORY M.D. ([id number] on 01/13/2018 5:11:27 PM Referred By: BHANU Confirmed By:GERRY GREGORY M.D.
== END 2017-10-24 19:15 | disposition home or self-care (01) | DRG 470 ==
LOC: SURG A 10-22 07:52
PROVIDERS: ADMIT Orthopaedic Surgery; ATTEND Orthopaedic Surgery
PROC: 0SRB0J9 Replacement of Left Hip Joint with Synthetic Substitute, Cemented, Open Approach (ICD-10-PCS; principal; 2017-10-22)
DX: M16.12 Unilateral primary osteoarthritis, left hip (principal); M45.9 Ankylosing spondylitis of unspecified sites in spine
CPT/HCPCS: 36415; 85027; 93005; 93010; 96374; G8978-GP-CK; G8979-GP-CI; G8987-GO-CJ; G8988-GO-CI; J0131; J1100; J1170; J1885; J2001; J2405; J2704; J3010; J7050

== ENCOUNTER 2017-11-26 14:22 | Outpatient (CLI) | payer OTHER | END 2017-11-26 14:23 | disposition home or self-care (01) | LOC: BICRAD 14:22 | PROVIDERS: ATTEND Internal Medicine | DX: Z02.71 Encounter for disability determination (principal); M47.896 Other spondylosis, lumbar region; N20.0 Calculus of kidney | CPT/HCPCS: 72040; 72100 ==